=== PATIENT | female | born 1960 | race Caucasian/White ===

== ENCOUNTER 2020-12-18 14:59 | Emergency (ER) | payer MEDICARE ==
[~2020-12-18 14:59] MED LIST: ACYCLOVIR200 MG PO; ADDERALL 15 MG15 MG PO; ASPIRIN325 MG PO; BENADRYL ITCH28.3 GM TOP; BENTYL10 MG PO; CYCLOBENZAPRINE10 MG PO; HABITROL14 MG TD; HEPARIN 3010 UNIT/1 IV; IBUPROFEN800 MG PO; KEFLEX250 MG PO; LACTINEX1 EACH PO; MAXIPIME2 G1 IV; MICON-GUARD 2% TOP; NEURONTIN300 MG PO; NITROQUIK SL0.4 MG SL; NORCO 5-325 TA1 EACH PO; NORMAL SALINE F10 ML IV; ONDANSETRON ODT4 MG PO; PERCOCET 5-3251 EACH PO; PERCOCET 7.5/321 TAB PO; PRENATAL FORMU1 EACH PO; PROMETHEGA12.5 MG/SU PR; PROTONIX 40MG T40 MG PO; ROBAXIN500 MG PO; SEROQUEL 100MG100 MG PO; SEROQUEL 25MG T25 MG PO; SYNTHROID25 MCG PO; VANCOMYCIN750 MG/250 IV; VITAMIN D1000 UNIT PO; ZOLOFT100 MG PO
[2020-12-18 15:51] LABS: BILIRUBIN NEGATIVE (NEGATIVE); BLOOD TRACE-INTACT Ery/uL (NEGATIVE); COLOR YELLOW (YELLOW); GLUCOSE (U) NORMAL (NORMAL); LEUKOCYTES 1+ Leu/uL (NEGATIVE); NITRITE POSITIVE (NEGATIVE); PROTEIN 1+ mg/dL (NEGATIVE); SPECIFIC GRAVITY 1.025 (1.001-1.030); UROBILINOGEN 0.2 mg/dL (0.2-1.0)
[2020-12-18 15:57] LABS: CLARITY HAZY (CLEAR)
[2020-12-18 16:00] LABS: BACTERIA 4+
[2020-12-18 16:01] LABS: URINARY RBC RARE; URINARY WBC 20-50
[2020-12-18 16:36] LABS: ALBUMIN 3.8 g/dL (3.4-5.0); BASOPHIL 0.8 % (0-2); BILIRUBIN - TOTAL 0.2 mg/dL (0.2-1.0); BUN/CREAT RATIO (CALC) 47.1 RATIO; CREATININE 0.85 mg/dL (0.51-0.95); EOSINOPHIL 3.4 % (0-5); GLOBULIN (CALCULATION) 3.9 g/dL; HCT 43.2 % (37.0-47.0); HGB 14.3 g/dl (12.5-16.0); LYMPHOCYTE 21.8 % (15-48); MCH 31.8 pg (25.0-31.0); MCHC 33.1 g/dL (32.0-36.0); MCV 96.2 fL (78.0-100.0); MONOCYTE 11.4 % (0-12); MPV 9.6 fL (6.0-9.5); NEUTROPHIL 62.2 % (41-80); NRBC 0; PLT 395 K/uL (150-400); POTASSIUM 3.8 mmol/L (3.5-5.1); RBC 4.49 M/uL (4.20-5.40); TOTAL PROTEIN 7.7 g/dL (6.4-8.2); WBC 11.9 K/uL (4.0-10.5)
[2020-12-18] MEDS ORDERED: LEVAQUIN500 MG PO (21:24)
[2020-12-18] MEDS ORDERED: NORCO 5-325 TA1 EACH PO (21:24)
== END 2020-12-18 21:40 | disposition home or self-care (01) ==
LOC: FER 14:59
PROVIDERS: Emergency Medicine
DX: N39.0 Urinary tract infection, site not specified (principal); R19.7 Diarrhea, unspecified; R63.0 Anorexia; F17.210 Nicotine dependence, cigarettes, uncomplicated; Z87.39 Personal history of other diseases of the musculoskeletal system and connective tissue; Z90.49 Acquired absence of other specified parts of digestive tract; Z90.710 Acquired absence of both cervix and uterus; Z88.2 Allergy status to sulfonamides
CPT/HCPCS: 36415; 80053; 81001; 82150; 83690; 85025; J1170; J1956; J2405; J7030

== ENCOUNTER 2022-04-05 11:07 | Emergency (ER) | payer MEDICARE ==
[~2022-04-05 11:07] MED LIST changes: +LEVAQUIN500 MG PO
== END 2022-04-05 14:59 | disposition other institution (70) ==
LOC: FER 11:07
DX: G83.4 Cauda equina syndrome (principal); Z88.1 Allergy status to other antibiotic agents; Z28.310 Unvaccinated for COVID-19
CPT/HCPCS: J1170